=== PATIENT | female | born 1950 | race Caucasian/White ===

== ENCOUNTER → 2022-01-07 | Day surgery (SDC) | payer MEDICARE ==
[2022-01-01 14:07] LABS: BASOPHILS # (AUTO) 0.1 (0.0-0.1); EOSINOPHILS # (AUTO) 0.1 (0.0-0.4); EOSINOPHILS % 0.6 % (0.0-6.0); HEMATOCRIT 39.8 % (34.2-44.1); HEMOGLOBIN 13.3 g/dL (12.0-16.0); LYMPHOCYTES # (AUTO) 1.4 (1.0-3.2); LYMPHOCYTES % 15.9 % (18.0-39.1); MEAN CORPUSCULAR HGB CONC 33.4 g/dL (31-35); MEAN CORPUSCULAR VOLUME 98.8 fL (81-99); MONOCYTES # (AUTO) 0.6 (0.2-0.8); NEUTROPHILS # (AUTO) 6.8 (2.1-6.9); NEUTROPHILS % 75.1 % (38.7-80.0); PLATELET COUNT 406 x10e3/uL (140-360); RED BLOOD COUNT 4.03 x10e6/uL (3.6-5.1); RED CELL DISTRIBUTION WIDTH 12.9 % (11.7-14.4)
[2022-01-01 14:26] LABS: ANION GAP 15.1 mmol/L (8-16); CALCIUM 9.4 mg/dL (8.4-10.2); CREATININE, SERUM 0.73 mg/dL (0.57-1.11); POTASSIUM 4.1 mmol/L (3.5-5.1)
[~2022-01-07] MED LIST: BETAMETHASONE DISODIUM PHOS 6 MG/ML VIAL ONE; BUPIVACAINE HCL 0.5% INJ 30 ML VIAL INJ ONE; CYCLOBENZAPRINE5 MG PO; LEVOTHYROXINE88 MCG PO; LIDOCAINE HCL 1% LOCAL INJ 20 ML VIAL ONE; LORTAB 10 MG-3473 ML PO; LYRICA150 MG PO; MAGNESIUM500 MG PO; MEDROL DOSE PACK PO; MUPIROCIN 2% OINT 22 GM TUBE ONE; NEURONTIN300 MG PO; PRILOSEC OTC20 MG PO; RESTORIL30 MG PO; TOPAMAX100 MG PO; VITAMIN B-121000 MCG PO; VITAMIN C1000 MG PO; VITAMIN D350 MCG PO
[2022-01-07 08:55] VITALS: BP 131/78
== END | disposition home or self-care (01) ==
LOC: OR 06:56
PROVIDERS: ATTEND Podiatrist Foot Surgery
DX: M20.12 Hallux valgus (acquired), left foot (principal); M77.32 Calcaneal spur, left foot; G57.52 Tarsal tunnel syndrome, left lower limb; E03.9 Hypothyroidism, unspecified; Z88.6 Allergy status to analgesic agent; Z88.2 Allergy status to sulfonamides; Z01.810 Encounter for preprocedural cardiovascular examination; Z01.812 Encounter for preprocedural laboratory examination; Z01.818 Encounter for other preprocedural examination; Z79.899 Other long term (current) drug therapy
CPT/HCPCS: 28035; 28119; 28292; 36415; 71046; 73620; 80048; 85025; 93005; J0690; J0720; J2001